=== PATIENT | female | born 1990 | race Two or more races ===

== ENCOUNTER 2017-12-19 01:04 | Emergency (ER) | payer OTHER ==
[~2017-12-19] VITALS: Ht 162.6 cm; Wt 65.4 kg
[2017-12-19 01:25] VITALS: BP 100/72
== END 2017-12-19 06:14 | disposition left against medical advice (07) ==
LOC: ER 01:06
DX: R05 Cough (principal); R10.13 Epigastric pain; Z53.21 Procedure and treatment not carried out due to patient leaving prior to being seen by health care provider